=== PATIENT | male | born 1970 | race Caucasian/White ===

== ENCOUNTER 2017-10-26 10:30 | Emergency (ER) | payer OTHER ==
[~2017-10-26] VITALS: Ht 180.3 cm; Wt 80.0 kg
[2017-10-26 11:15] LABS: HEMATOCRIT 43.1 % (39.0-50.0); HEMOGLOBIN 14.3 g/dl (14.0-18.0); IMMATURE GRANULOCYTES 0.4 % (0.0-1.0); MEAN CORPUSCULAR HGB 31.8 pG CALC (26.0-32.0); MEAN CORPUSCULAR HGB CONC 33.2 g/L CALC (32.0-36.0); NEUT# 6.75 thou/uL (1.82-7.42); RED BLOOD COUNT 4.49 mill/uL (4.70-6.10); RED CELL DISTRI WIDTH 12.1 % (11.5-15.5)
[2017-10-26 11:35] LABS: ALBUMIN 4.3 g/dL (3.2-5.0); ALKALINE PHOSPHATASE 43 u/l (38-126); ANION GAP 17 (6-22 (CALC)); BILIRUBIN, TOTAL 0.5 mg/dL (0.0-1.4); BUN 15 mg/dL (9-20); BUN/CREATININE RATIO 19 (12-20 (CALC)); CALCIUM 9.8 mg/dL (8.4-10.2); CARBON DIOXIDE 26 mmol/l (22-30); CHLORIDE 102 mmol/l (95-108); CREATININE 0.8 mg/dL (0.7-1.3); GFR > 60 ML/MIN (>=60 (CALC)); GFR FOR AFR.AMER. > 60 ML/MIN (>=60 (CALC)); GLUCOSE 102 mg/dL (75-110); LIPASE 75 u/l (23-300); POTASSIUM 4.5 mmol/l (3.5-5.1); SGOT/AST 21 u/l (17-59); SGPT/ALT 23 u/l (21-72); SODIUM 141 mmol/l (137-146); TOTAL PROTEIN 6.7 g/dL (6.3-8.2)
[2017-10-26 12:53] LABS: URINE BILIRUBIN - DIPSTICK NEGATIVE (NEGATIVE); URINE BLOOD DIPSTICK NEGATIVE (NEGATIVE); URINE COLOR YELLOW; URINE GLUCOSE - DIPSTICK NEGATIVE (NEGATIVE); URINE KETONE NEGATIVE (NEGATIVE); URINE LEUK ESTERASE NEGATIVE (NEGATIVE); URINE NITRITE - DIPSTICK NEGATIVE (Negative); URINE PROTEIN - DIPSTICK NEGATIVE (NEG-TRACE); URINE UROBILINOGEN - DIPSTICK 0.2 E.U./dL (0.2)
[2017-10-26 13:08] LABS: URINE CLARITY CLEAR
[2017-10-26] MEDS ORDERED: PROTONIX40 M4 PO (13:19)
[2017-10-26] MEDS ORDERED: ZOFRAN4 M1 PO (13:19)
[2017-10-26 13:28] VITALS: BP 136/78
== END 2017-10-26 13:34 | disposition home or self-care (01) | DRG 392 ==
LOC: ED 10:30
PROVIDERS: Family Medicine
DX: R10.84 Generalized abdominal pain (principal); K76.0 Fatty (change of) liver, not elsewhere classified; K59.00 Constipation, unspecified; R11.2 Nausea with vomiting, unspecified; R61 Generalized hyperhidrosis; Q63.1 Lobulated, fused and horseshoe kidney
CPT/HCPCS: Q9967

== ENCOUNTER 2018-09-19 09:12 | Emergency (ER) | payer SELFPAY ==
[~2018-09-19] VITALS: Ht 180.3 cm; Wt 86.0 kg
[2018-09-19 09:12] VITALS: BP 144/90
[~2018-09-19 09:12] MED LIST: PROTONIX40 M4 PO; ZOFRAN4 M1 PO
[2018-09-19] MEDS ORDERED: PROAIR HFA108 MCG/AC PO (09:24)
[2018-09-19] MEDS ORDERED: PREDNISONE50 MG PO (09:24)
== END 2018-09-19 10:32 | disposition home or self-care (01) | DRG 916 ==
LOC: ED 09:12
DX: T78.40XA Allergy, unspecified, initial encounter (principal); L50.0 Allergic urticaria; L29.9 Pruritus, unspecified

== ENCOUNTER 2018-09-21 10:37 | Emergency (ER) | payer OTHER ==
[~2018-09-21] VITALS: Ht 180.3 cm; Wt 81.8 kg
[~2018-09-21 10:37] MED LIST changes: +PREDNISONE50 MG PO; +PROAIR HFA108 MCG/AC PO
[2018-09-21] MEDS ORDERED: APAP/HYDRO325 MG/10 PO (11:48)
[2018-09-21] MEDS ORDERED: ORPHENADRINE C100 MG PO (11:48)
[2018-09-21 12:50] VITALS: BP 129/81
== END 2018-09-21 12:50 | disposition home or self-care (01) | DRG 607 ==
LOC: ED 10:37
DX: L50.9 Urticaria, unspecified (principal)

== ENCOUNTER 2018-10-04 00:39 | Emergency (ER) | payer OTHER ==
[~2018-10-04] VITALS: Ht 177.8 cm; Wt 82.0 kg
[~2018-10-04 00:39] MED LIST changes: +APAP/HYDRO325 MG/10 PO; +ORPHENADRINE C100 MG PO
[2018-10-04] MEDS ORDERED: PROAIR HFA108 MCG/AC IN (01:13)
[2018-10-04] MEDS ORDERED: PRILOSEC OTC20 MG PO (01:14)
[2018-10-04 01:20] LABS: HEMATOCRIT 42.6 % (39.0-50.0); HEMOGLOBIN 14.3 g/dl (14.0-18.0); IMMATURE GRANULOCYTES 0.3 % (0.0-5.0); MEAN CELL VOLUME 93.8 fL CALC (80.0-100.0); MEAN CORPUSCULAR HGB 31.5 pG CALC (26.0-32.0); MEAN CORPUSCULAR HGB CONC 33.6 g/L CALC (32.0-36.0); NEUT# 3.52 thou/uL (1.82-7.42); RED BLOOD COUNT 4.54 mill/uL (4.70-6.10); RED CELL DISTRI WIDTH 12.9 % (11.5-15.5)
[2018-10-04 01:39] LABS: ALBUMIN 4.5 g/dL (3.2-5.0); ALKALINE PHOSPHATASE 53 u/l (38-126); ANION GAP 13 (6-22 (CALC)); BILIRUBIN, TOTAL 0.5 mg/dL (0.0-1.4); BUN 18 mg/dL (9-20); BUN/CREATININE RATIO 22 (12-20 (CALC)); CARBON DIOXIDE 24 mmol/l (22-30); CHLORIDE 108 mmol/l (95-108); CREATININE 0.8 mg/dL (0.7-1.3); GFR > 60 ML/MIN (>=60 (CALC)); GFR FOR AFR.AMER. > 60 ML/MIN (>=60 (CALC)); POTASSIUM 4.2 mmol/l (3.5-5.1); SODIUM 140 mmol/l (137-146); TOTAL PROTEIN 7.7 g/dL (6.3-8.2)
[2018-10-04 01:44] LABS: SGOT/AST 37 u/l (17-59)
[2018-10-04 01:52] LABS: URINE BILIRUBIN - DIPSTICK NEGATIVE (NEGATIVE); URINE BLOOD DIPSTICK NEGATIVE (NEGATIVE); URINE COLOR YELLOW; URINE GLUCOSE - DIPSTICK NEGATIVE (NEGATIVE); URINE KETONE NEGATIVE (NEGATIVE); URINE LEUK ESTERASE NEGATIVE (NEGATIVE); URINE NITRITE - DIPSTICK NEGATIVE (Negative); URINE PROTEIN - DIPSTICK NEGATIVE (NEG-TRACE); URINE SPECIFIC GRAVITY 1.015; URINE UROBILINOGEN - DIPSTICK 0.2 E.U./dL (0.2)
[2018-10-04 01:52] LABS: MYOGLOBIN 33 ng/mL (0 - 121)
[2018-10-04 01:53] LABS: BARBITURATES NEGATIVE (NEGATIVE); COCAINE NEGATIVE (NEGATIVE); METHADONE NEGATIVE (NEGATIVE); OXCYCODONE POSITIVE (NEGATIVE); TETRAHYDROCANNABIONOL NEGATIVE (NEGATIVE); TRICYLIC ANTIDEPRESSANTS NEGATIVE (NEGATIVE)
[2018-10-04] MEDS ORDERED: METO50TA52 PO (02:21)
[2018-10-04 02:36] VITALS: BP 123/80
== END 2018-10-04 02:35 | disposition home or self-care (01) | DRG 310 ==
LOC: ED 00:39
PROVIDERS: Family Medicine
DX: I47.1 Supraventricular tachycardia (principal); J45.909 Unspecified asthma, uncomplicated